=== PATIENT | male | born 1985 | race Caucasian/White ===

== ENCOUNTER 2016-11-06 16:47 | Emergency (ER) | payer MEDICAID ==
[~2016-11-06] VITALS: Ht 177.8 cm; Wt 84.6 kg
[2016-11-06 17:14] VITALS: BP 150/76; PULSE 86; RESP 16; TEMP 98.5; O2SAT 100
[2016-11-06] MEDS ORDERED: TETANUS/DIPHTHERIA TOXOID ADULT 0.5 ML VIAL IM ONE (18:00)
[2016-11-06] MEDS ORDERED: ACETAMIN 325 MG/BUTALBITAL 50 MG/CAFFEINE 40 MG TAB PO ONE (18:00)
--- NOTE | 2016-11-06 18:09 | PD ---
HPI Chief Complaint: Laceration/Skin Injury Time Seen by Provider: 17:55 Travel History International Travel<30 days: No Contact w/Intl Traveler<30days: No Traveled to known affect area: No History of Present Illness HPI 31-year-old male presents to the emergency room for evaluation of laceration to the top of his head that occurred several hours prior to arrival. Patient was removing a nail overhead when the prybar slipped and struck him on top of the head. He got tunnel vision and felt dizzy immediately after it happened but did not actually pass out. He reports nausea but has not vomited. Patient is not on blood thinners. Denies chronic medical conditions or daily medications. Unknown last tetanus. PFSH Past Medical History Cancer: No Cardiovascular Problems: No Diminished Hearing: No Endocrine: No Genitourinary: Yes Immune Disorder: No Kidney Stones: Yes Musculoskeletal: Yes Neurologic: No Psychiatric: No Reproductive: No Respiratory: Yes Past Surgical History Abdominal Surgery: No Cardiac Surgery: No Ear Surgery: No Endocrine Surgery: No Eye Surgery: No Genitourinary Surgery: Yes (LITHOTRIPSY) Oral Surgery: No Thoracic Surgery: No Other Surgery: Yes (lithotrypsy) Social History Alcohol Use: No Tobacco Use: Yes (DIP) Substance Use: No Allergies-Medications (Allergen,Severity, Reaction): Coded Allergies: No Known Allergies (Unverified , 11/06/16) Reported Meds & Prescriptions Reported Meds & Active Scripts Active No Active Prescriptions or Reported Medications Review of Systems Except as stated in HPI: all other systems reviewed are Neg Physical Exam Narrative GENERAL: Well-nourished, well-developed male in no acute distress. Afebrile. Ambulatory. SKIN: Focused skin assessment warm/dry. 4 cm well approximated laceration to the top of the scalp. HEAD: Normocephalic. EYES: No scleral icterus. No injection or drainage. NECK: Supple, trachea midline. No JVD or lymphadenopathy. EARS: Bilateral pinnae and external canals appear within normal limits. Bilateral tympanic membranes without erythema, dullness or perforation. No hemotympanum. CARDIOVASCULAR: Regular rate and rhythm without murmurs, gallops, or rubs. RESPIRATORY: Breath sounds equal bilaterally. No accessory muscle use. NEUROLOGICAL: Awake and alert. Cranial nerves II through XII intact. Motor and sensory grossly within normal limits. Five out of 5 muscle strength in all muscle groups. Normal speech. Data Data Last Documented VS Vital Signs Date Time Temp Pulse Resp B/P Pulse Ox O2 Delivery O2 Flow Rate FiO2 11/06/16 17:14 98.5 86 16 150/76 100 Orders Tetanus/Diphtheria Tox Adult (Tetanus/Di (11/06/16 18:00) Okzt-Loyrk-Ohzq 325-50-40 Mg (Fioricet 3 (11/06/16 18:00) MDM Medical Decision Making Medical Screen Exam Complete: Yes Emergency Medical Condition: Yes Medical Record Reviewed: Yes Differential Diagnosis Laceration, abrasion, head injury, fracture Narrative Course 31-year-old male presents to the emergency room for evaluation of laceration to the top of the scalp that occurred earlier today. Patient struck himself in the head with a primary bar accidentally. Tenderness will be updated in the ED. Laceration was repaired, see procedure note for details. [place] CT head trauma rules excluding for imaging at this time. Patient has no focal neurological deficits. Discharged with wound care instructions and told to follow up with primary care physician worsening symptoms. He understands and agrees to plan. Procedures Procedure Narrative LACERATION LOCATION: Top of scalp LENGTH: 3 cm NUMBER OF STITCHES/TAWANA: 3 tawana REPAIR: The area of the laceration was prepped with Betadine. The wound was copiously irrigated and explored without evidence of foreign body, tendon injury or neurovascular injury. The wound was closed using staple gun. This was a single layer repair. A sterile dressing was applied. The patient was advised to keep the dressing clean and dry. Patient tolerated the procedure well. Diagnosis Primary Impression: Scalp laceration Qualified Code: S01.01XA - Scalp laceration, initial encounter Referrals: Primary Care Physician Patient Instructions: General Instructions, Laceration (ED) Additional Instructions: Keep wound clean and dry. Wash with soap and water every day. Tawana out in 7 days. Follow-up with a primary care physician. Return for worsening symptoms. Scripts No Active Prescriptions or Reported Meds Disposition: 01 DISCHARGE HOME Condition: Stable Lilian Means Nov 06, 2016 18:09
== END 2016-11-06 18:18 | disposition home or self-care (01) ==
LOC: PHEFT 16:47
DX: S01.01XA Laceration without foreign body of scalp, initial encounter (principal); W20.8XXA Other cause of strike by thrown, projected or falling object, initial encounter; Z23 Encounter for immunization
CPT/HCPCS: 12002; 90471; 90714

== ENCOUNTER 2016-11-13 09:40 | Emergency (ER) | payer OTHER, MEDICAID ==
[~2016-11-13] VITALS: Ht 177.8 cm; Wt 86.0 kg
[2016-11-13 10:01] VITALS: BP 140/80; PULSE 63; RESP 18; TEMP 98.1; O2SAT 18; O2SAT 96
--- NOTE | 2016-11-13 10:14 | PD ---
HPI Chief Complaint: Laceration/Skin Injury Time Seen by Provider: 10:13 Travel History International Travel<30 days: No Contact w/Intl Traveler<30days: No Traveled to known affect area: No History of Present Illness HPI 31 yo M arrives for removal of three tawana from mid anterior scalp. no pain, bleeding or discharge. the tawana were placed eight days ago here without complication. PFSH Past Medical History Cancer: No Cardiovascular Problems: No Diminished Hearing: No Endocrine: No Genitourinary: Yes Immune Disorder: No Kidney Stones: Yes Musculoskeletal: Yes Neurologic: No Psychiatric: No Reproductive: No Respiratory: Yes Past Surgical History Abdominal Surgery: No Cardiac Surgery: No Ear Surgery: No Endocrine Surgery: No Eye Surgery: No Genitourinary Surgery: Yes (LITHOTRIPSY) Oral Surgery: No Thoracic Surgery: No Other Surgery: Yes (lithotrypsy) Social History Alcohol Use: No Tobacco Use: Yes (DIP) Substance Use: No Allergies-Medications (Allergen,Severity, Reaction): Coded Allergies: No Known Allergies (Unverified , 11/06/16) Reported Meds & Prescriptions Reported Meds & Active Scripts Active No Active Prescriptions or Reported Medications Review of Systems General / Constitutional: No: Fever Physical Exam Narrative GENERAL: WNWD, 31 yo M SKIN: Warm and dry. Well approximated linear laceration approx 5 cm with three tawana, no discharge/erythema/tenderness. HEAD: Normocephalic. Data Data Last Documented VS Vital Signs Date Time Temp Pulse Resp B/P Pulse Ox O2 Delivery O2 Flow Rate FiO2 11/13/16 10:01 98.1 63 18 140/80 96 VS reviewed [facility] Medical Decision Making Medical Screen Exam Complete: Yes Emergency Medical Condition: Yes Differential Diagnosis staple removal, infection, wound dehiscence Narrative Course three tawana removed. pt tolerated well. Diagnosis Primary Impression: Encounter for staple removal Additional Instructions: You have a choice when it comes to health care, and we are glad that you chose [facility]. Hopefully, we have met your expectations on today's visit. You are welcome to return to [facility] at any time, as we are committed to meeting the health care needs of our community. Med/Other Pt SpecificInfo: No Change to Meds Scripts No Active Prescriptions or Reported Meds Disposition: DISCHARGE HOME Condition: Stable John Dhaliwal MD Nov 13, 2016 10:14
== END 2016-11-13 10:19 | disposition home or self-care (01) ==
LOC: PHEFT 09:40
DX: S01.01XD Laceration without foreign body of scalp, subsequent encounter (principal); Z48.02 Encounter for removal of sutures; X58.XXXD Exposure to other specified factors, subsequent encounter
CPT/HCPCS: 99281

== ENCOUNTER 2017-08-13 18:33 | Emergency (ER) | payer MEDICAID, OTHER ==
[~2017-08-13] VITALS: Ht 177.8 cm; Wt 83.0 kg
[2017-08-13 18:37] VITALS: BP 153/83; PULSE 89; RESP 16; TEMP 97.6; O2SAT 99
--- NOTE | 2017-08-13 19:09 | PD ---
HPI Chief Complaint: Injury Time Seen by Provider: 18:57 Travel History International Travel<30 days: No Contact w/Intl Traveler<30days: No Traveled to known affect area: No History of Present Illness HPI 31-year-old male presents emergency department for evaluation of right fifth toe pain after dropping a tire bar in room on his toe about 11 AM this morning. Patient states that he was removing a tire from a rim when the rim hit his toe , resulting in this injury. Says he was wearing his steel toe boots at the time. Patient states that he was able to work throughout the day however, says that he has a great deal of pain at this point. Denies any numbness or tingling. Says he has been using ibuprofen all day for pain relief. His pain is moderate to severe, worse with movement. Says in addition the toe continues to bleed despite the Band-Aid and bandages he has been placing. Denies chronic medical issues medication use. Last tetanus within the last 5 years. PFSH Past Medical History Medical History: Denies Significant Hx Cancer: No Cardiovascular Problems: No Diminished Hearing: No Endocrine: No Gastrointestinal Disorders: Yes Genitourinary: Yes Immune Disorder: No Implanted Vascular Access Dvce: No Kidney Stones: Yes Musculoskeletal: Yes Neurologic: No Psychiatric: No Reproductive: No Respiratory: Yes Tetanus Vaccination: < 5 Years Past Surgical History Abdominal Surgery: No Cardiac Surgery: No Ear Surgery: No Endocrine Surgery: No Eye Surgery: No Genitourinary Surgery: Yes (LITHOTRIPSY) Neurologic Surgery: No Oral Surgery: No Thoracic Surgery: No Other Surgery: Yes (lithotrypsy) Social History Alcohol Use: No Tobacco Use: Yes (DIP) Substance Use: No Allergies-Medications (Allergen,Severity, Reaction): Coded Allergies: No Known Allergies (Unverified Adverse Reaction, Unknown, 08/13/17) Reported Meds & Prescriptions Reported Meds & Active Scripts Active Bactrim DS (Sulfamethoxazole-Trimethoprim) 800-160 Mg Tab 1 Tab PO BID Keflex (Cephalexin) 500 Mg Cap 500 Mg PO Q8H 7 Days Ibuprofen 800 Mg Tab 800 Mg PO Q6HR PRN 5 Days Hydrocodone-Acetaminophen 5-325 mg Tab 1 Tab PO Q6H PRN 3 Days Review of Systems Except as stated in HPI: all other systems reviewed are Neg Physical Exam Narrative GENERAL: Well-developed, well-nourished in mild distress SKIN: Focused skin assessment warm/dry. Fifth toe right foot-medial aspect with a 1 cm laceration, entire toe is ecchymotic. Difficulty with evaluating toe secondary to pain. HEAD: Atraumatic. Normocephalic. EYES: Pupils equal and round. No scleral icterus. No injection or drainage. ENT: No nasal bleeding or discharge. Mucous membranes pink and moist. NECK: Trachea midline. No JVD. CARDIOVASCULAR: Regular rate and rhythm. No murmur appreciated. RESPIRATORY: No accessory muscle use. Clear to auscultation. Breath sounds equal bilaterally. MUSCULOSKELETAL: No obvious deformities. No clubbing. No cyanosis. No edema. Right foot- tenderness to palpation of fifth toe from MTP2 entire fifth toe. Ecchymosis present. NEUROLOGICAL: Awake and alert. No obvious cranial nerve deficits. Motor grossly within normal limits. Normal speech. PSYCHIATRIC: Appropriate mood and affect; insight and judgment normal. Data Data Last Documented VS Vital Signs Date Time Temp Pulse Resp B/P (MAP) Pulse Ox O2 Delivery O2 Flow Rate FiO2 08/13/17 18:37 97.6 89 16 153/83 (106) 99 Orders Orders Acetamin-Hydrocod 325-7.5 Mg ([place] 7.5 (08/13/17 19:15) Ondansetron Odt (Zofran Odt) (08/13/17 19:15) Foot, Complete (Qbn3pmj) (08/13/17 ) Sulfamet-Trimeth Ds 800-160 Mg (Bactrim (08/13/17 19:15) Cephalexin (Keflex) (08/13/17 19:15) Morphine Inj (Morphine Inj) (08/13/17 20:30) Wound Care (08/13/17 20:54) Ed Discharge Order (08/13/17 20:58) [facility] Medical Decision Making Medical Screen Exam Complete: Yes Emergency Medical Condition: Yes Differential Diagnosis Right fifth toe fracture, open fracture, laceration Narrative Course 30-year-old male presents emergency department evaluation of his right fifth toe after a rim entire and fell on it today. X-ray obtained to rule out fracture. I suspect the patient has an open fracture. Patient administer Keflex and Bactrim. Hydrocodone for pain. Zofran to prevent nausea. Last Impressions Foot X-Ray 08/13/17 0000 Signed Impressions: Service Date/Time: Sunday, August 13, 2017 19:23 - CONCLUSION: Minimally displaced fracturing of the middle and distal phalanges of the little toe. Milad Rojas MD A digital block was performed of the fifth toe for further exploration of the laceration. Patient patient continues to have excruciating pain. Ordered morphine 2 mg for injection. The laceration was thoroughly irrigated and cleansed. The laceration did not appear to extend into the bony prominences. Laceration repair was completed with 2 simple interrupted sutures. Because the skin was somewhat macerated there was difficulty keeping the skin from ripping through the suture material. I consulted my attending physician regarding this case. She did not believe that there was an open fracture either. Patient be discharged with pain medication, ibuprofen and antibiotics. Advised that he should follow-up with podiatry as soon as possible. Advised on wound care. Advised for worsening or persistent symptoms such as infectious process. He and his family state understanding will comply. Procedures Procedure Narrative LACERATION LOCATION: Right fifth 2 interdigital space at the flexion of the proximal phalanges LENGTH: 7mm NUMBER OF STITCHES/MICHAEL: 2 REPAIR: The area of the laceration was prepped with Betadine and sterilely draped. The fifth toe was infiltrated as a digital block with 1% lidocaine without epinephrine. The wound was copiously irrigated and explored without evidence of foreign body, tendon injury or neurovascular injury. The wound was closed using 4-0 Prolene. This was a single layer repair. A sterile dressing and Xeroform was applied. The patient was advised to keep the dressing clean and dry. Patient tolerated the procedure well. Diagnosis Primary Impression: Toe fracture Qualified Codes: S92.521A - Displaced fracture of middle phalanx of right lesser toe(s), initial encounter for closed fracture Additional Impression: Laceration of toe Qualified Codes: S91.114A - Laceration without foreign body of right lesser toe(s) without damage to nail, initial encounter Referrals: Bag Machine Tender Primary Care Physician Departure Forms: Tests/Procedures, Work Release Enter return to work date: Aug 17, 2017 Additional Instructions: Follow up with your primary care physician within 2-3 days. Keep area clean and dry for 24 hours. After 24 hrs, you may bathe as normal but dry the area thoroughly. You may use [id number] triple antibiotic ointments for your injury daily. Change dressings daily. If bleeding starts, apply pressure and elevate the area. If you developed increased redness, swelling, or pain return to the emergency department as this could be a sign of infection. Follow-up with podiatry soon as possible. Suture removal in 7-10 days Scripts Sulfamethoxazole-Trimethoprim (Bactrim DS) 800-160 Mg Tab 1 TAB PO BID for Infection, #14 TAB 0 Refills Prov: Raissa Watts MD 08/13/17 Cephalexin (Keflex) 500 Mg Cap 500 MG PO Q8H for Infection for 7 Days, #21 CAP 0 Refills Prov: Raissa Watts MD 08/13/17 Ibuprofen (Ibuprofen) 800 Mg Tab 800 MG PO Q6HR Y for PAIN for 5 Days, #40 TAB 0 Refills Prov: Raissa Watts MD 08/13/17 Hydrocodone-Acetaminophen (Hydrocodone-Acetaminophen) 5-325 mg Tab 1 TAB PO Q6H Y for PAIN for 3 Days, #12 TAB 0 Refills Prov: Raissa Watts MD 08/13/17 Disposition: 01 DISCHARGE HOME Condition: Stable Ciarra Tavera Aug 13, 2017 19:09
[2017-08-13] MEDS ORDERED: ACETAMINOPHEN/HYDROcodone 325 MG/7.5 MG TAB PO ONE (19:15)
[2017-08-13] MEDS ORDERED: CEPHALEXIN MONOHYDRATE 500 MG CAP PO ONE (19:15)
[2017-08-13] MEDS ORDERED: ONDANSETRON ODT 4 MG TAB PO ONE (19:15)
[2017-08-13] MEDS ORDERED: SULFAMETHOXAZOLE-TRIMETHOPRIM DS 800-160 MG TAB PO ONE (19:15)
--- NOTE | 2017-08-13 19:43 | RADRPT ---
EXAM DATE/TIME: 08/13/2017 19:23 [facility] COMPARISON: No previous studies available for comparison. INDICATIONS : Right foot pain. Patient states he hit the dorsal surface of his foot with a hammer. Also his fifth d igit with a tire rim. MEDICAL HISTORY : None. SURGICAL HISTORY : None. ENCOUNTER: Initial ACUITY: 1 day PAIN SCORE: 9/10 LOCATION: Right foot, fifth digit. FINDINGS: Mildly comminuted fracturing seen on both sides of the distal interphalangeal joint of the little toe . No subluxation. Other bones of the right foot are intact. CONCLUSION: Minimally displaced fracturing of the middle and distal phalanges of the little toe. Milad Rojas MD on August 13, 2017 at 19:39 Board Certified Radiologist. This report was verified electronically.
[2017-08-13] MEDS ORDERED: MORPHINE SULFATE 2 MG/ML SYRINGE IM ONE (20:30)
--- NOTE | 2017-08-13 20:41 | PD ---
Data Data Last Documented VS Vital Signs Date Time Temp Pulse Resp B/P (MAP) Pulse Ox O2 Delivery O2 Flow Rate FiO2 08/13/17 18:37 97.6 89 16 153/83 (106) 99 Orders Orders Acetamin-Hydrocod 325-7.5 Mg ([place] 7.5 (08/13/17 19:15) Ondansetron Odt (Zofran Odt) (08/13/17 19:15) Foot, Complete (Nvj2ipl) (08/13/17 ) Sulfamet-Trimeth Ds 800-160 Mg (Bactrim (08/13/17 19:15) Cephalexin (Keflex) (08/13/17 19:15) Morphine Inj (Morphine Inj) (08/13/17 20:30) MDM Supervised Visit with [facility]: Yes Narrative Course The history, exam, and medical decision-making in the associated midlevel provider note were completed with my assistance. I reviewed and agree with the findings presented. I attest that I had a iaep-ld-[id number] encounter with the patient on the same day, and personally performed and documented my assessment and findings in the medical record. *My assessment and Findings: This is a 31-year-old male who dropped a tire rim on his right foot injuring his right small toe. He has fractures of the distal and middle phalanges of the right fifth toe. He has a laceration at the webspace which I do not think is adjacent to the fractures and I do not think this represents an open fracture. Wound was copiously irrigated and repaired by the physician fast food sales assistant. The patient will be provided with follow-up to podiatry. Diagnosis Primary Impression: Toe fracture Additional Impression: Laceration of toe Qualified Codes: S91.114A - Laceration without foreign body of right lesser toe(s) without damage to nail, initial encounter Scripts No Active Prescriptions or Reported Meds Disposition: 01 DISCHARGE HOME Condition: Stable Raissa Watts MD Aug 13, 2017 20:41
[2017-08-13] MEDS ORDERED: IBUP1TAB7 PO ×2 (20:56→20:59)
[2017-08-13] MEDS ORDERED: BACT800T5 PO ×2 (20:56→20:59)
[2017-08-13] MEDS ORDERED: CEPH-460 PO ×2 (20:56→20:59)
[2017-08-13] MEDS ORDERED: HYDR-3516 PO ×2 (20:56→20:59)
== END 2017-08-13 21:21 | disposition home or self-care (01) ==
LOC: PHEFT 18:33
DX: S92.591A Other fracture of right lesser toe(s), initial encounter for closed fracture (principal); S91.114A Laceration without foreign body of right lesser toe(s) without damage to nail, initial encounter; W20.8XXA Other cause of strike by thrown, projected or falling object, initial encounter; Y93.89 Activity, other specified
CPT/HCPCS: 12001; 73630; 96372; 99283; J2270

== ENCOUNTER 2017-08-23 12:21 | Emergency (ER) | payer OTHER ==
[~2017-08-23] VITALS: Ht 177.8 cm; Wt 82.3 kg
[~2017-08-23 12:21] MED LIST: BACT800T5 PO; CEPH-460 PO; HYDR-3516 PO; IBUP1TAB7 PO
[2017-08-23 12:25] VITALS: BP 151/71; PULSE 70; RESP 16; TEMP 97.3; O2SAT 97
[2017-08-23] MEDS ORDERED: BACT800T5 PO (12:58)
[2017-08-23] MEDS ORDERED: CEPH-460 PO (12:58)
--- NOTE | 2017-08-23 12:58 | PD ---
HPI Chief Complaint: Wound/Suture/Staple Re-Check Time Seen by Provider: 12:34 Travel History International Travel<30 days: No Contact w/Intl Traveler<30days: No Traveled to known affect area: No History of Present Illness HPI 31-year-old male here for suture removal his right foot. 10 days ago he sustained a laceration between his fourth and fifth digit and toe fracture after a tire drop on the foot. He denies fever, chills, increasing pain, redness of the site. He reports the area is improving. He continues to have mild pain at the site of the laceration. Symptom severity is mild. Aggravated by range of motion and walking. Relieved with rest. PFSH Past Medical History Cancer: No Cardiovascular Problems: No Diminished Hearing: No Endocrine: No Gastrointestinal Disorders: Yes Genitourinary: Yes Immune Disorder: No Implanted Vascular Access Dvce: No Kidney Stones: Yes Musculoskeletal: Yes Neurologic: No Psychiatric: No Reproductive: No Respiratory: Yes Immunizations Current: Yes Tetanus Vaccination: < 5 Years Influenza Vaccination: No Past Surgical History Abdominal Surgery: No Cardiac Surgery: No Ear Surgery: No Endocrine Surgery: No Eye Surgery: No Genitourinary Surgery: Yes (LITHOTRIPSY) Neurologic Surgery: No Oral Surgery: No Thoracic Surgery: No Other Surgery: Yes (lithotrypsy) Social History Alcohol Use: No Tobacco Use: Yes (1 pk) Substance Use: No Allergies-Medications (Allergen,Severity, Reaction): Coded Allergies: No Known Allergies (Unverified Adverse Reaction, Unknown, 08/23/17) Reported Meds & Prescriptions Reported Meds & Active Scripts Active Bactrim DS (Sulfamethoxazole-Trimethoprim) 800-160 Mg Tab 1 Tab PO BID Keflex (Cephalexin) 500 Mg Capsule 500 Mg PO Q6H 7 Days Bactrim DS (Sulfamethoxazole-Trimethoprim) 800-160 Mg Tab 1 Tab PO BID Hydrocodone-Acetaminophen 5-325 mg Tab 1 Tab PO Q6H PRN 3 Days Review of Systems Except as stated in HPI: all other systems reviewed are Neg General / Constitutional: No: Fever Eyes: No: Visual changes HENT: No: Headaches Cardiovascular: No: Chest Pain or Discomfort Respiratory: No: Shortness of Breath Gastrointestinal: No: Abdominal Pain Genitourinary: No: Dysuria Physical Exam Narrative GENERAL: Alert and well-appearing 31-year-old male SKIN: Warm and dry. HEAD: Normocephalic. EYES: No injection or drainage. NECK: Supple MUSCULOSKELETAL: No cyanosis, or edema. Right foot: Healing laceration to the webspace between the fourth and fifth digit. Skin is slightly macerated. 2 sutures removed. Fifth digit mildly erythematous and tender. Patient reports it is been this way since the time of the event. He feels symptoms are improving. Normal sensation. Brisk cap refill Data Data Last Documented VS Vital Signs Date Time Temp Pulse Resp B/P (MAP) Pulse Ox O2 Delivery O2 Flow Rate FiO2 08/23/17 12:25 97.3 70 16 151/71 (97) 97 MDM Medical Decision Making Medical Screen Exam Complete: Yes Emergency Medical Condition: Yes Differential Diagnosis Suture removal, wound infection, abscess Narrative Course 31-year-old male here for suture removal to his right foot. 2 sutures were removed. He has mild erythema of the toe he reports this has been persistent since the time of the laceration. He does have an underlying fracture. He denies fever chills. I will extend his antibiotics for 1 more week and he is to follow-up with podiatry. Diagnosis Primary Impression: Visit for suture removal Referrals: Video News Editor Additional Instructions: Continue antibiotics as instructed. Follow-up with podiatry. Return if new or worsening symptoms. Scripts Sulfamethoxazole-Trimethoprim (Bactrim DS) 800-160 Mg Tab 1 TAB PO BID for Infection, #14 TAB 0 Refills Prov: Elda Casas 08/23/17 Cephalexin (Keflex) 500 Mg Capsule 500 MG PO Q6H for Infection for 7 Days, #28 CAP 0 Refills Prov: Elda Casas 08/23/17 Disposition: 01 DISCHARGE HOME Condition: Stable Elda Casas August 23, 2017 12:58
== END 2017-08-23 13:22 | disposition home or self-care (01) ==
LOC: PHEFT 12:21
DX: Z48.02 Encounter for removal of sutures (principal); F17.200 Nicotine dependence, unspecified, uncomplicated; Z87.442 Personal history of urinary calculi
CPT/HCPCS: 99281